=== PATIENT | female | born 1940 | race Caucasian/White ===

== ENCOUNTER 2017-08-02 08:29 | Emergency (ER) | payer MEDICARE, BC ==
[~2017-08-02] VITALS: Ht 160 cm; Wt 90.0 kg
[2017-08-02] MEDS ORDERED: ALLOPURINOL100 MG PO (09:20)
[2017-08-02] MEDS ORDERED: METFORMIN500 MG PO (09:20)
[2017-08-02] MEDS ORDERED: LEVOTHYROXIN75 MCG PO (09:20)
[2017-08-02] MEDS ORDERED: ELIQUIS5 MG PO (09:21)
[2017-08-02] MEDS ORDERED: INDERAL 20MG TA20 MG PO (09:21)
[2017-08-02] MEDS ORDERED: DILTIAZEM30 MG PO (09:22)
[2017-08-02] MEDS ORDERED: MAG OXIDE400 MG PO (09:23)
[2017-08-02] MEDS ORDERED: OMEPRAZOLE10 MG PO (09:23)
[2017-08-02] MEDS ORDERED: BENAZEPRIL10 MG PO (09:24)
[2017-08-02] MEDS ORDERED: MICRO-K10 ME1 PO (09:24)
[2017-08-02] MEDS ORDERED: FENOFIBRATE145 MG PO (09:25)
[2017-08-02] MEDS ORDERED: GLIPIZIDE ER2.5 MG PO (09:25)
[2017-08-02] MEDS ORDERED: ATORVASTATIN CA20 MG PO (09:25)
[2017-08-02 09:29] VITALS: BP 137/75
[2017-08-02] MEDS ORDERED: TRAMADOL HYDROC50 MG PO (09:33)
[2017-08-02] MEDS ORDERED: FLEXERIL PO (09:33)
[2017-08-02] MEDS ORDERED: EC-NAPROSYN500 MG PO (09:33)
== END 2017-08-02 10:18 | disposition home or self-care (01) ==
LOC: ED 08:29
DX: M12.552 Traumatic arthropathy, left hip (principal); M62.838 Other muscle spasm; M25.552 Pain in left hip; X50.3XXA Overexertion from repetitive movements, initial encounter; Y93.41 Activity, dancing; Y92.89 Other specified places as the place of occurrence of the external cause